=== PATIENT | male | born 1950 | race Caucasian/White ===

== ENCOUNTER → 2016-12-08 | Outpatient (CLI) | payer OTHER ==
[~2016-12-08] MED LIST: ASPI81TA28 PO; BRL90 PO; CHOL2000 PO; GLUC1CAP35 PO; HYDR-5688 PO; INSTAFLEX PO; IRBE1TAB46 PO; IRBE1TAB48 PO; LEVO100T PO; LPR25 PO; LPT40 PO; METFTAB2 PO; MIRA1TAB3 PO; MODA100T17 PO; MODA1TAB PO; MULT-845 PO; NTRSLP4 SL; OMEG1CAP81 PO; PARO1TAB29 PO; PRLSR20 PO; RANITIDINE PO; ROPI0.5T15 PO; SIMV80TA2 PO; SNC/20 PO; VITAMIN B12 PO; [UNRECOGNIZED DRUG - OTHER] PO
[2016-12-08 12:42] LABS: ALB/GLOB RATIO 1.2 (0.9-2); ALKALINE PHOSPHATASE 77 U/L (45-117); ALT/SGPT 38 U/L (12-78); AST/SGOT 22 U/L (15-37); BLOOD UREA NITROGEN 26 mg/dl (7-18); BUN/CREATININE RATIO 25.7 (10-20); CALCIUM 8.9 mg/dl (8.5-10.1); CARBON DIOXIDE 25 mmol/L (21-32); CHLORIDE 105 mmol/L (98-107); CHOLESTEROL 173 mg/dl (0-200); GLUCOSE 119 mg/dl (70-99); HDL CHOLESTEROL 57 mg/dl; SODIUM 140 mmol/L (136-145)
[2016-12-08 12:57] LABS: LDL CHOLESTEROL CALCULATED 84 mg/dl; TRIGLYCERIDES 162 mg/dl (0-150); VERY LOW DENSITY LIPOPROT CALC 32 mg/dl
[2016-12-08 13:04] LABS: ESTIMATED AVERAGE GLUCOSE 134 mg/dl; HA1C FLAG Normal (Normal)
== END | disposition home or self-care (01) ==
LOC: C.LABPVFM 10:19
PROVIDERS: ATTEND Family Medicine
DX: E78.5 Hyperlipidemia, unspecified (principal); E03.9 Hypothyroidism, unspecified; E55.9 Vitamin D deficiency, unspecified; E11.9 Type 2 diabetes mellitus without complications

== ENCOUNTER → 2016-12-12 | Outpatient (CLI) | payer OTHER ==
[~2016-12-12] MED LIST changes: -HYDR-5688 PO
[2016-12-12 13:15] LABS: RATIO 15.5 mcg/mg (0-30.0)
== END | disposition home or self-care (01) ==
LOC: C.LABPVFM 09:45
PROVIDERS: ATTEND Family Medicine
DX: E78.5 Hyperlipidemia, unspecified (principal); E03.9 Hypothyroidism, unspecified; E55.9 Vitamin D deficiency, unspecified; E11.9 Type 2 diabetes mellitus without complications

== ENCOUNTER 2017-05-01 09:35 | Inpatient (IN) | payer OTHER ==
[2017-05-01] VITALS (8 sets, daily range): BP systolic 86–139; BP diastolic 45–81; PULSE 54–67; TEMP 36.4–36.8; O2SAT 93–98; Ht 172.7 cm; Wt 92.7 kg
[~2017-05-01] VITALS: Ht 172.7 cm; Wt 92.7 kg
[~2017-05-01 09:35] MED LIST changes: -ASPI81TA28 PO; -BRL90 PO; -GLUC1CAP35 PO; -IRBE1TAB46 PO; -LPR25 PO; -LPT40 PO; -MIRA1TAB3 PO; -MODA100T17 PO; -MODA1TAB PO; -NTRSLP4 SL; -OMEG1CAP81 PO; -RANITIDINE PO; -ROPI0.5T15 PO; -SNC/20 PO; -VITAMIN B12 PO
--- NOTE | 2017-05-01 09:54 | EMERGENCY ROOM VISIT NOTE ---
History Report prepared by Best: Bozena Davis Under the Supervision of: Dr. Nba Palencia D.O. First contact with patient: 09:45 Chief Complaint: CHEST PAIN Stated Complaint: HEART PROBLEMS History of Present Illness The patient is a 66 year old male who presents to the Emergency Room with complaints of intermittent central chest pain over the last several days. The patient reports that the pain radiates down both arms. He denies any abdominal pain. 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 He denies any modifying factors. The patient states that the pain lasted 10 minutes. He denies any history of heart problems, previous PR, or previous heart catheterization. The patient states that he was at his PCP's office today regarding his discomfort and was given aspirin and instructed to come to the emergency department. He reports a history of diabetes, hypertension, and hyperlipidemia. The patient denies any tobacco or alcohol use. The patient's sister in law reports a strong family history of heart disease. Source of History: patient Onset: last several days Position: chest (central) Timing: intermittent Note: Associated Symptoms: pain radiating into bilateral arms Review of Systems See HPI for pertinent positives & negatives. A total of 10 systems reviewed and were otherwise negative. Past Medical & Surgical Medical Problems: (1) Diabetes mellitus (2) Hypertension Family History Diabetes mellitus FH: heart disease Hypertension Social History Smoking Status: Never Smoker Alcohol Use: none Drug Use: none Marital Status: Housing Status: lives with significant other Occupation Status: retired Current/Historical Medications Scheduled Aspirin (Aspirin Ec), 81 MG PO DAILY Cholecalciferol (Vitamin D3), 1 CAP PO QAM Nutnvtppjud-Gkdxyimkwhx-Yyp C- (Glucosamine Chondroitin), 1 CAP PO BID Irbesartan (Irbesartan), 150 MG PO QAM Levothyroxine Sodium (Synthroid), 100 MCG PO QAM Metformin Ext Rel (Glucophage Ext Rel), 750 MG PO BID Mirabegron (Myrbetriq Er), 50 MG PO DAILY Modafinil (Provigil), 100 MG PO DAILY Modafinil (Provigil), 200 MG PO DAILY Multiple Vitamins W/ Minerals (Centrum Silver Adult 50+), 1 TAB PO QPM [place]-3 Fatty Acids (Fish Oil), 1 CAP PO BID Paroxetine (Paxil), 40 MG PO QAM Ropinirole (Requip), 0.5 MG PO HS Simvastatin (Zocor), 80 MG PO QPM Trospium Chloride (Trospium Chloride), 20 MG PO BID [Vitamin B12], 1 TAB PO DAILY Scheduled PRN [Ranitidine], 1 TAB PO DAILY PRN for PRN Allergies Coded Allergies: No Known Allergies (Verified , 05/01/17) Physical Exam Vital Signs Date Time Temp Pulse Resp B/P (MAP) Pulse Ox O2 Delivery O2 Flow Rate FiO2 05/01/17 12:05 67 12 05/01/17 12:00 70 16 05/01/17 11:55 64 16 05/01/17 11:50 68 16 81 05/01/17 11:45 65 19 94 05/01/17 11:40 67 23 94 05/01/17 11:35 79 21 97 05/01/17 11:30 68 20 94 05/01/17 11:25 64 10 97 05/01/17 11:20 62 8 97 05/01/17 11:15 63 13 05/01/17 11:10 62 14 95 05/01/17 11:05 64 18 128/79 95 05/01/17 11:01 128/79 05/01/17 11:00 93 Room Air 05/01/17 11:00 64 12 96 05/01/17 10:55 63 13 95 05/01/17 10:50 78 18 96 05/01/17 10:45 65 13 05/01/17 10:40 63 19 93 05/01/17 10:35 63 19 95 05/01/17 10:31 127/73 05/01/17 10:30 63 20 95 05/01/17 10:25 64 20 93 05/01/17 10:20 67 25 96 05/01/17 10:15 64 22 96 05/01/17 10:10 63 15 95 05/01/17 10:05 66 24 96 05/01/17 10:01 135/77 05/01/17 10:00 64 22 95 05/01/17 09:56 127/65 05/01/17 09:55 67 24 05/01/17 09:52 64 05/01/17 09:50 96 Room Air 05/01/17 09:50 Room Air 05/01/17 09:38 36.5 68 17 138/85 96 Room Air Physical Exam GENERAL: Patient is awake, alert, and in no acute distress. Patient is resting comfortably and showing no signs of anxiety EYES: The conjunctivae are clear. The pupils are round and reactive. EARS, NOSE, MOUTH AND THROAT: The nose is without any evidence of any deformity. Mucous membranes are moist tongue is midline NECK: The neck is nontender and supple. RESPIRATORY: Normal respiratory effort is noted there is no evidence of wheezing rhonchi or rales CARDIOVASCULAR: Regular rate and rhythm noted there no murmurs rubs or gallops normal S1 normal S2 GASTROINTESTINAL: The abdomen is soft. Bowel sounds are present in all quadrants. Abdomen is nontender MUSCULOSKELETAL/EXTREMITIES: There is no evidence of gross deformity full range of motion is noted in the hips and shoulders SKIN: There is no obvious evidence of any rash. There are no petechiae, pallor or cyanosis noted. NEUROLOGIC: Patient is awake alert and oriented x3. Medical Decision & Procedures ER Provider Diagnostic Interpretation: X-ray results as stated below per interpretation by me and the radiologist. CHEST ONE VIEW PORTABLE CLINICAL HISTORY: CHEST PAIN dyspnea COMPARISON STUDY: 08/10/2015 FINDINGS: The bones soft tissues and hemidiaphragms are normal. The cardiomediastinal silhouette is normal. The lungs are clear. The pulmonary vasculature is normal. IMPRESSION: Negative chest. Electronically signed by: Edmund Mack M.D. 05/01/2017 10:01 AM Dictated Date/Time: 05/01/2017 10:00 AM Laboratory Results 05/01/17 09:50 Red Blood Count 4.93, Mean Corpuscular Volume 93.7, Mean Corpuscular Hemoglobin 30.0, Mean Corpuscular Hemoglobin Concent 32.0, Mean Platelet Volume 9.6, Neutrophils (%) (Auto) 60.0, Lymphocytes (%) (Auto) 27.6, Monocytes (%) (Auto) 9.2, Eosinophils (%) (Auto) 2.0, Basophils (%) (Auto) 0.7, Neutrophils # (Auto) 4.48, Lymphocytes # (Auto) 2.06, Monocytes # (Auto) 0.69, Eosinophils # (Auto) 0.15, Basophils # (Auto) 0.05 05/01/17 09:50 Test 05/01/17 09:50 White Blood Count 7.47 K/uL (4.8-10.8) Red Blood Count 4.93 M/uL (4.7-6.1) Hemoglobin 14.8 g/dL (14.0-18.0) Hematocrit 46.2 % (42-52) Mean Corpuscular Volume 93.7 fL (80-100) Mean Corpuscular Hemoglobin 30.0 pg (25-34) Mean Corpuscular Hemoglobin Concent 32.0 g/dl (32-36) Platelet Count 199 K/uL (130-400) Mean Platelet Volume 9.6 fL (7.4-10.4) Neutrophils (%) (Auto) 60.0 % Lymphocytes (%) (Auto) 27.6 % Monocytes (%) (Auto) 9.2 % Eosinophils (%) (Auto) 2.0 % Basophils (%) (Auto) 0.7 % Neutrophils # (Auto) 4.48 K/uL (1.4-6.5) Lymphocytes # (Auto) 2.06 K/uL (1.2-3.4) Monocytes # (Auto) 0.69 K/uL (0.11-0.59) Eosinophils # (Auto) 0.15 K/uL (0-0.5) Basophils # (Auto) 0.05 K/uL (0-0.2) RDW Standard Deviation 46.4 fL (36.4-46.3) RDW Coefficient of Variation 13.6 % (11.5-14.5) Immature Granulocyte % (Auto) 0.5 % Immature Granulocyte # (Auto) 0.04 K/uL (0.00-0.02) Prothrombin Time 10.6 SECONDS (9.0-12.0) Prothromb Time International Ratio 1.0 (0.9-1.1) Activated Partial Thromboplast Time 25.7 SECONDS (21.0-31.0) Partial Thromboplastin Ratio 1.0 Anion Gap 8.0 mmol/L (3-11) Est Creatinine Clear Calc Drug Dose 79.2 ml/min Estimated GFR () 89.9 Estimated GFR (Non- 77.5 BUN/Creatinine Ratio 27.4 (10-20) Calcium Level 9.1 mg/dl (8.5-10.1) Total Bilirubin 0.5 mg/dl (0.2-1) Direct Bilirubin < 0.1 mg/dl (0-0.2) Aspartate Amino Transf (AST/SGOT) 41 U/L (15-37) Alanine Aminotransferase (ALT/SGPT) 40 U/L (12-78) Alkaline Phosphatase 80 U/L (45-117) Total Creatine Kinase 423 U/L (39-308) Creatine Kinase MB 20.7 ng/ml (0.5-3.6) Creatine Kinase MB Ratio 4.9 (0-3.0) Troponin I 2.320 ng/ml (0-0.045) Total Protein 7.3 gm/dl (6.4-8.2) Albumin 4.0 gm/dl (3.4-5.0) Triglycerides Level 68 mg/dl (0-150) Cholesterol Level 123 mg/dl (0-200) HDL Cholesterol 55 mg/dl LDL Cholesterol, Calculated 54 mg/dl VLDL Cholesterol, Calculated 14 mg/dl Cholesterol/HDL Ratio 2.2 Lipase 104 U/L (73-393) Laboratory results per my review. Medications Administered Medications (Trade) Dose Ordered Sig/Regino Route Start Time Stop Time Status Last Admin Dose Admin Heparin Sodium/ Dextrose 1 ea NOW STAT N/A 05/01/17 10:31 05/01/17 10:32 DC 05/01/17 11:04 1 EA Heparin Sodium/ Dextrose (Heparin 25,000 Unit/500ml D5W) 25,000 unit STK-MED ONCE .ROUTE 05/01/17 10:43 05/01/17 10:44 DC 05/01/17 11:00 25,000 UNIT Heparin Sodium (Porcine) (Heparin Sq 5000 Unit/0.5ml) 10,000 unit STK-MED ONCE .ROUTE 05/01/17 10:52 05/01/17 10:53 DC 05/01/17 10:58 6 UNIT Sodium Chloride 1,000 ml @ 75 mls/hr [id number] IV 05/01/17 11:51 05/31/17 11:50 05/01/17 15:15 75 MLS/HR Nitroglycerin (Nitroglycerin 2% Oint) 1 inch Q6H EXT 05/01/17 12:00 05/31/17 11:59 05/01/17 15:16 1 INCH ECG Indication: chest pain Rate (beats per minute): 66 Rhythm: normal sinus Findings: T-wave inversion (anterior and lateral leads, worriesom for ischemia) , no ectopy, other (no acute st segment abnormalities) Comparison ECG Date: 08/10/15 Change: When compared to EKG done on 08/10/15, changes are new. Similar tracing to EKG done earlier today as an outpatient. ED Course 0946: The patient was evaluated in room B11B. A complete history and physical examination were performed. 1031: Ordered Heparin Sodium Dextrose 1 ea NA. 1037: I discussed the patients case with Dr. Nichols, Cardiology. He states that he will call the international Design/Animation Instructor to discuss taking the patient to the aquatic laborer. 1043: Ordered Heparin Sodium/Dextrose 54301 unit .route. 1052: Ordered Heparin Sodium (Porcine) 62880 unit .route. 1115: I reevaluated the patient and he is doing well. I discussed the exam findings with him and I discussed the treatment plan. He verbalized complete understanding and agreement. He is going to be evaluated for further treatment. 1120: I discussed the patients case with Dr. Zendejas, [facility] [place]. He is going to evaluate the patient for further treatment. Medical Decision Differential diagnosis: Etiologies such as cardiac ischemia, aortic dissection, pulmonary embolism, pneumonia, pneumothorax, musculoskeletal, infections, pericarditis, myocarditis , esophageal rupture, gastrointestinal, as well as others were entertained. Blood pressure screening: Patient was found to have normal blood pressure on screening and does not require follow-up. Medication Reconciliation: I attest that I have personally reviewed the patient' s current medications list. The patient is a 66-year-old male who presented to the emergency department for an evaluation of chest pain. The patient has a very strong history of early coronary artery disease and also has many risk factors for coronary artery disease. Initially was seen by his primary care physician and sent to the emergency department after he was given aspirin. The patient was found have an abnormal EKG by his primary care physician and was sent to the emergency department for further evaluation. The patient has no chest pain at this time. His EKG does show changes could be related to ischemia as well as left main or LAD disease. I discussed the patient's laboratory and radiographic studies with him. He was found have an elevated troponin. I do feel his condition is likely consistent with an acute coronary syndrome. He was started on heparin. He was reevaluated multiple times. I discussed his case with the on-call [facility] communication studies professor as well as the on-call [facility] hospitalist group. They have agreed to evaluate the patient in emergency apartment for further management and disposition. Consults Time Called: 1035 Consulting Physician: Dr. Nichols, Cardiology Returned Call: 1037 I discussed the patients case with Dr. Nichols, Cardiology. He states that he will call the international Design/Animation Instructor to discuss taking the patient to the aquatic laborer. Additional Consults: Time Called: 1041 Consulted Physician: ALDO Alves Returned Call: 1120 Additional Comments: I discussed the patients case with ALDO Alves. He is going to evaluate the patient for further treatment. Impression Primary Impression: NSTEMI (non-ST elevated myocardial infarction) Additional Impression: Abnormal EKG Critical Care I have personally spent greater than 45 minutes of critical care time in the direct management of this patient. This includes bedside care, interpretation of diagnostic studies, and testing, discussion with consultants, patient, and family members, and other required patient management activities. This 45 minutes is in excess of all separately billable procedures. Scribe Attestation The scribe's documentation has been prepared under my direction and personally reviewed by me in its entirety. I confirm that the note above accurately reflects all work, treatment, procedures, and medical decision making performed by me. Departure Information Dispostion Being Evaluated By Hospitalist Referrals Carl Peña M.D. (PCP) Problem Qualifiers
[2017-05-01 10:01] LABS: BASO % 0.7 %; BASO ABS # 0.05 K/uL (0-0.2); COMPLETE YES; HEMATOCRIT 46.2 % (42-52); IG% 0.5 %; LYMPH % 27.6 %; LYMPH ABS # 2.06 K/uL (1.2-3.4); MEAN CELL VOLUME 93.7 fL (80-100); MEAN PLATELET VOLUME 9.6 fL (7.4-10.4); MONO % 9.2 %; PLATELET COUNT 199 K/uL (130-400); RED BLOOD COUNT 4.93 M/uL (4.7-6.1); WHITE BLOOD COUNT 7.47 K/uL (4.8-10.8)
--- NOTE | 2017-05-01 10:02 | DIAGNOSTIC IMAGING REPORT ---
CHEST ONE VIEW PORTABLE CLINICAL HISTORY: CHEST PAIN dyspnea COMPARISON STUDY: 08/10/2015 FINDINGS: The bones soft tissues and hemidiaphragms are normal. The cardiomediastinal silhouette is normal. The lungs are clear. The pulmonary vasculature is normal. IMPRESSION: Negative chest. Electronically signed by: Edmund Mack M.D. 05/01/2017 10:01 AM Dictated Date/Time: 05/01/2017 10:00 AM
[2017-05-01 10:16] LABS: CALCIUM 9.1 mg/dl (8.5-10.1)
[2017-05-01 10:19] LABS: PROTHROMBIN TIME (PATIENT) 10.6 SECONDS (9.0-12.0)
[2017-05-01 10:20] LABS: ALT/SGPT 40 U/L (12-78); BLOOD UREA NITROGEN 27 mg/dl (7-18); BUN/CREATININE RATIO 27.4 (10-20); CARBON DIOXIDE 26 mmol/L (21-32); CHLORIDE 105 mmol/L (98-107); GLUCOSE 102 mg/dl (70-99); POTASSIUM 4.1 mmol/L (3.5-5.1); SODIUM 139 mmol/L (136-145)
[2017-05-01 10:31] LABS: ALKALINE PHOSPHATASE 80 U/L (45-117); AST/SGOT 41 U/L (15-37); CKMB/CK RATIO 4.9 (0-3.0)
[2017-05-01] MEDS ORDERED: ASPI81TA28 PO ×2 (10:35)
[2017-05-01] MEDS ORDERED: RANITIDINE PO ×2 (10:35)
[2017-05-01] MEDS ORDERED: OMEG1CAP81 PO ×2 (10:35)
[2017-05-01] MEDS ORDERED: GLUC1CAP35 PO ×2 (10:35)
[2017-05-01] MEDS ORDERED: VITAMIN B12 PO ×2 (10:35)
[2017-05-01] MEDS ORDERED: HEPARIN 25000 UNIT/500 ML D5W ONE (10:43)
[2017-05-01] MEDS ORDERED: SNC/20 PO ×2 (10:46)
[2017-05-01] MEDS ORDERED: ROPI0.5T15 PO ×2 (10:46)
[2017-05-01] MEDS ORDERED: MODA1TAB PO ×2 (10:46)
[2017-05-01] MEDS ORDERED: MODA100T17 PO ×2 (10:46)
[2017-05-01] MEDS ORDERED: MIRA1TAB3 PO ×2 (10:46)
[2017-05-01] MEDS ORDERED: HEPARIN SOD 5000 UNIT/0.5 ML CARP ONE (10:52)
[2017-05-01] MEDS ORDERED: DEXTROSE 50% 50 ML SYR IV PRN (12:00)
[2017-05-01] MEDS ORDERED: NITROGLYCERIN 0.4 MG SL PER TAB CHARGE SL PRN (12:00)
[2017-05-01] MEDS ORDERED: ZOLPIDEM TARTRATE 5 MG TAB PO PRN (12:00)
[2017-05-01] MEDS ORDERED: MoRPHine SULFATE 2 MG/ML CARP IV PRN (12:00)
[2017-05-01] MEDS ORDERED: ALUMINUM/MAGNESIUM/SIMETH (MAALOX MAX) 30 ML UDC PO PRN (12:00)
[2017-05-01] MEDS ORDERED: MAGNESIUM HYDROXIDE SUSP 30 ML UDC PO PRN (12:00)
[2017-05-01] MEDS ORDERED: POLYETHYLENE (MIRALAX) 17 GM PACK PO PRN (12:00)
[2017-05-01] MEDS ORDERED: ACETAMINOPHEN 325 MG TAB PO PRN ×2 (12:00→18:45)
[2017-05-01] MEDS ORDERED: GLUCOSE 40% GEL 15 GM TUBE PO PRN (12:00)
[2017-05-01] MEDS ORDERED: GLUCAGON FOR INJ 1 MG VIAL SQ PRN (12:00)
[2017-05-01] MEDS ORDERED: GLUCOSE 10 TABS/TUBE PO PRN (12:00)
[2017-05-01] MEDS ORDERED: PHARMACY GLYCEMIC MGMT CONSULT PRN (12:08)
--- NOTE | 2017-05-01 12:21 | Pharmacy Progress Note ---
Glycemic Control Intl Consult Date of Service May 01, 2017. Scope Glycemic Pharmacist consulted on 05/01/17 for glycemic control and to write orders per [facility] inpatient glycemic control protocol Objective Weight (Kilograms): 92.700 Accuchecks BSG (last 24hrs): Test 05/01/17 09:50 Random Glucose 102 mg/dl (70-99) Laboratory Data (last 24hrs) Test 05/01/17 09:50 Anion Gap 8.0 mmol/L BUN/Creatinine Ratio 27.4 Blood Urea Nitrogen 27 mg/dl Creatinine 1.00 mg/dl Potassium Level 4.1 mmol/L Sodium Level 139 mmol/L White Blood Count 7.47 K/uL Red Blood Count 4.93 M/uL Hemoglobin 14.8 g/dL Hematocrit 46.2 % Mean Corpuscular Volume 93.7 fL Mean Corpuscular Hemoglobin 30.0 pg Mean Corpuscular Hemoglobin Concent 32.0 g/dl Platelet Count 199 K/uL Mean Platelet Volume 9.6 fL Neutrophils (%) (Auto) 60.0 % Lymphocytes (%) (Auto) 27.6 % Monocytes (%) (Auto) 9.2 % Eosinophils (%) (Auto) 2.0 % Basophils (%) (Auto) 0.7 % Neutrophils # (Auto) 4.48 K/uL Lymphocytes # (Auto) 2.06 K/uL Monocytes # (Auto) 0.69 K/uL Eosinophils # (Auto) 0.15 K/uL Basophils # (Auto) 0.05 K/uL Recent Pertinent Medications Outpatient Anti-diabetic Regimen: * Metformin ER 750 mg BIDM Risk Factors for Insulin Resistance: * Diet: NPO Assessment & Plan ASSESSMENT: * 66 yo M admitted with chest pain * Pt appears to be a T2DM on Metformin only at home * Plan will be to initiate patient on wt-based Novolog and follow-up tomorrow if diet advanced * Most recent A1c from 11/2016 (not within 90 days); reorder with AM labs * ADA & AACE recommend a goal blood sugar range 140-180 mg/dl for the majority of critically ill & non-critically ill patients. However, more stringent targets may be selected in individual cases. PLAN FOR INPATIENT GLYCEMIC CONTROL: * Hold outpatient metformin * Correctional Insulin with NOVOLOG per scale Q6hrs while NPO * Goal Range: Low 140 mg/dL - High 180 mg/dL * Correction Factor: 25 mg/dL/unit * Nutritional / Prandial insulin per carb ratio of 1 unit per 0 grams CHO consumed * Please note that the plan above was derived based on current level of insulin resistance and hospital stress. These recommendations are appropriate for inpatient admission only. Plan of care upon discharge will need to be reassessed to avoid potential outpatient hypo/hyperglycemia. Thank you.
[2017-05-01 12:26] LABS: CHOLESTEROL/HDL RATIO 2.2
--- NOTE | 2017-05-01 12:27 | CARDIOLOGY CONSULTATION REPORT ---
DATE OF CONSULTATION: 05/01/2017 DATE OF CONSULTATION: 05/01/2017. REASON FOR CONSULTATION: 1. Unstable Angina. 2. Elevated troponin I. 3. Multiple cardiac risk factors. HISTORY OF PRESENT ILLNESS: Mr. Berman is a very pleasant 66-year-old white male with a history of Type 2 Diabetes Mellitus x 10 years, Hypertension, Dyslipidemia, and a very strong family history of premature coronary artery disease who presented acutely to his PCPs office today complaining of intermittent chest pain. His pain was initially noted on 04/28/2017 when he was sitting quietly. He describes the discomfort as a pressure in his central / left chest. His initial episode lasted about 1 hour, and the pain resolved gradually. Since that time he has had several more mild episodes of this chest pressure which do not necessarily radiate to his arms, and can last for 5-15 minutes. He denies any associated nausea, vomiting, diaphoresis, or dyspnea. His subsequent episodes can occur with exertion or at rest. Thus far he is noted to have an elevated Troponin I level of 2.320 ng/mL, with an elevated total CK and borderline CK-MB level. Additionally his EKG shows normal sinus rhythm with biphasic T-waves / T-wave abnormality in leads V1 through V4. These changes are new compared to 10/01/2014 tracing. The patient offers no other complaints or concerns. He denies any prior cardiac history or prior cardiac events. He has never had a stress test. He has never had a cardiac catheterization. His last meal was last evening, and he took his last dose of metformin last evening at approximately 10 p.m. The patient denies any history of kidney disease and he denies any drug allergies or contrast allergies. MEDICATIONS ( AN OUTPATIENT): 1. Aspirin 81 mg daily (recently started). 2. Vitamin D3 2000 International Units daily. 3. Glucosamine chondroitin sulfate 1 capsule b.i.d. 4. Irbesartan 150 mg daily. 5. Levothyroxine 100 mcg daily. 6. Metformin 750 mg b.i.d. 7. Provigil 100 mg each day. 8. Provigil 200 mg daily. 9. Multivitamin with minerals. 10. Jack 3 fatty acids 1 capsule b.i.d. 11. Paxil 40 mg daily. 12. Requip 0.5 mg p.o. at bedtime. 13. Zocor 80 mg q.p.m. 14. Trospium chloride 20 mg b.i.d. 15. Ranitidine 1 tablet daily as needed. 16. Vitamin B12 one tablet daily. ALLERGIES: No known drug allergies. PAST MEDICAL HISTORY: 1. Type 2 Diabetes Mellitus x approximately 10 years. 2. Long-standing Hypertensin. 3. Long-standing Dyslipidemia. 4. GERD. 5. BPH. 6. Mixed sleep apnea. 7. History of depression. 8. Hypothyroidism. 9. Osteoarthritis. 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 11. History of vitamin D deficiency. 12. The patient specifically denies any history of documented CAD, TN, CHF, or rheumatic fever. No history of cardiac dysrhythmias. SOCIAL HISTORY: The patient is and accompanied by his and [id number]. He is a life-long nonsmoker. He does not drink alcohol. Works on a cattle farm. Does not us any illicit or [id number] drugs. FAMILY HISTORY: Significant for premature CAD in 3 brothers, all of whom are now. Youngest brother started having cardiac issues in his 50s. PHYSICAL EXAMINATION: VITAL SIGNS: Temperature 36.5 C, blood pressure is 127/73, pulse 65 and regular, respiratory rate is 12 and unlabored, SPO2 is 93% on room air. GENERAL: The patient is in no acute distress. HEAD, EYES, EARS, NOSE, AND THROAT: Head is atraumatic, normocephalic. EOM intact. Sclera anicteric. Faces symmetric. No perioral cyanosis. Mucous membranes moist. NECK: Without thyromegaly, adenopathy or JVD. Carotid upstrokes +2 bilaterally without bruits. CHEST AND LUNGS: Are clear to auscultation throughout lung arteaga. No wheezes, rales or rhonchi. CARDIOVASCULAR SYSTEM: S1 and S2 are regular without murmur, gallop, or rub. PMI is nondisplaced. No lifts, heaves, or thrills. No abdominal, aortic or renal bruits. ABDOMINAL EXAMINATION: Bowel sounds are present. No masses, organomegaly, or tenderness. No abdominal, aortic, renal or femoral bruits. Femoral, arterial upstrokes are +2 bilaterally. EXTREMITIES: No clubbing, cyanosis, or edema. Intact radial and posterior tibial pulses bilaterally. Dilan's test borderline negative on the right for ulnar reflow. NEUROLOGIC EXAMINATION: Patient is awake, alert and oriented, pleasant and cooperative. Answers questions appropriately. Speech is clear. Normal movement in all 4 extremities. Current telemetry monitoring reveals normal sinus rhythm to sinus bradycardia. LABORATORY DATA: White blood cell count of 7.47, hemoglobin 14.8 g/dL, hematocrit 46.2%, platelet count 199,000. INR is 1.0. PTT ratio is 1.0. Sodium is 139 mmol/L, potassium 4.1 mmol/L, BUN 27 mg/dL, creatinine 1.00 mg/dL. Random glucose 102 mg/dL. Total CKs is 423 with CK-MB of 20.7 ng/mL (representing 4.9% of total CK). Troponin I level elevated at 2.320 ng/mL. Chest x-ray shows no acute processes. EKG on admission shows normal sinus rhythm at the rate of 66 beats per minute with biphasic T-waves in leads V1 through V4 with T-wave flattening in V5. These are new compared to 2014 tracing. ASSESSMENT: 1. New onset Chest Pressure with radiation to bilateral medial arms -- Consistent with Unstable Angina / Crescendo Angina. 2. Elevated troponin I level. 3. Abnormal EKG. 4. Type 2 Diabetes Mellitus. 5. Hypertension. 6. Dyslipidemia. 7. Strong family history of premature CAD. PLAN: 1. I have discussed this patient with Dr. Sunshine. 2. We will attempt to take patient to the Cardiac Catheterization laboratory within the next several hours. He is to remain NPO until that time except for medications. 3. The patient is currently symptom free. 4. Continue high dose statin therapy. Will recommend switching to Lipitor 80 mg daily - as this event appears to have occurred while on high dose Zocor. 5. Continue Irbesartan 150 mg daily. 6. Hold metformin for now and cover blood sugars with sliding scale insulin. 7. Begin low dose beta seble -- Lopressor 25 mg bid. 8. Continue Aspirin daily intermission coordinator. 9. He has already received Heparin subcutaneously. Consider starting heparin drip depending on when cardiac catheterization is starting. 10. Continue trending cardiac enzymes. 11. Daily EKGs. 12. We will make further recommendations pending the outcome of his cardiac catheterization. 13. I had a long discussing with the patient today regarding how cardiac catheterization is, what information is gathered by cardiac catheterization -- along with the risks, benefits, and potential outcomes of cardiac catheterization. He agrees to proceed. I have discussed this case with Dr. Sunshine who will also meet with the patient. HERBIE
[2017-05-01] MEDS: HEPARIN SOD 5000 UNIT/0.5 ML CARP SQ SCH ×2 (14:00→23:14)
[2017-05-01] MEDS ORDERED: METOPROLOL TARTRATE 25 MG TAB PO STA (14:10)
[2017-05-01] MEDS: SODIUM CHLORIDE 0.9% 1000ML 1,000 ML IV SCH (15:15)
[2017-05-01] MEDS: NITROGLYCERIN 2% OINTMENT 30GM TUBE EXT SCH ×2 (15:16→18:00)
[2017-05-01] MEDS ORDERED: HEPARIN SOD (PORCINE) 1000 UNIT/ML 10 ML VIAL ONE (15:26)
[2017-05-01] MEDS ORDERED: NiCARDipine HCL INJ 2.5 MG/ML 10 ML AMP ONE (15:26)
[2017-05-01] MEDS ORDERED: NITROGLYCERIN/D5W 100MCG/ML 20ML SYR ONE (15:27)
[2017-05-01] MEDS ORDERED: MIDAZOLAM HCL 1 MG/ML 2ML VIAL ONE (15:27)
[2017-05-01] MEDS ORDERED: FENTANYL CITRATE INJ 50 MCG/1 ML 2 ML VIAL ONE (15:27)
--- NOTE | 2017-05-01 15:42 | HISTORY & PHYSICAL EXAMINATION ---
DATE OF ADMISSION: 05/01/2017 CHIEF COMPLAINT: Chest pain. HISTORY OF PRESENT ILLNESS: The patient is a 66-year-old white man with past medical history of diabetes mellitus type 2, currently on metformin also has hypertension and dyslipidemia. The patient does have 3 brothers that most likely from heart attack, they were found in most of the situation and other 2 brothers that have a significant cardiac history 1 of them had CABG. 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 The pain resolved by sitting down and resting. Later on that day, he had a milder episode of chest pain that he also ignored. The next day, he also had another 1 or 2 episodes that he ignored because they would not as severe. The patient called his primary doctor yesterday and went to see her today. She sent him to the ED for further evaluation and management. On arrival to the ED, he was chest pain free, but his troponin was 2.3 and he had some nonspecific EKG changes, so patient will be admitted for further evaluation and management. Pain was severe on the first time upon presentation recurrent episodes were much milder. The patient's pain radiated to his arms. He describes the pain as chest heaviness. PAST MEDICAL HISTORY: As HPI. PAST SURGICAL HISTORY: As HPI. ALLERGIES: No known drug allergies. HOME MEDICATIONS: 1. Aspirin 81 mg daily. 2. Vitamin D supplement. 3. Irbesartan 150 mg daily. 4. Levothyroxine 100 mcg daily. 5. Metformin 750 mg b.i.d. 6. stimulant drug 100 mg each day and 200 mg as well. I am not sure how he takes these, whether he alternates or takes them the same day. 7. Multivitamin. 8. [place]-3 fatty acid. 9. Paxil 40 mg daily. 10. Requip 0.5 mg daily. 11. Zocor 80 mg p.o. daily. 12. Trospium chloride 20 mg b.i.d. 13. Ranitidine 1 tablet daily as needed. 14. Vitamin B12 supplement. ALLERGIES: No known allergies. SOCIAL HISTORY: Does not smoke, does not drink alcohol. Lives in a farm. FAMILY HISTORY: Significant for premature CAD in 3 brothers as mentioned above. PHYSICAL EXAMINATION: VITAL SIGNS: Pulse ox 96% on room air, respiratory rate is 14, heart rate is 62, blood pressure 127/73. GENERAL: Not in acute distress, appears to be comfortable, mildly obese. HEAD, EYES, EARS, NOSE, AND THROAT: No jaundice, no pallor. Wet mucous membrane. NECK: Supple. HEART: S1, S2 normal. No gallop, rub or murmur. LUNGS: Clear to auscultation bilaterally. Normal chest wall expansion. ABDOMEN: Soft, nontender, nondistended. NEUROLOGIC: Awake, alert, oriented to time, place, and person. Moves all extremities. Sensation intact. Cranial nerves II-XII, appears to be intact. SKIN: No rash or erythema. PSYCHIATRIC: Normal affect and thought process. IMAGING: Chest x-ray is within normal limits. EKG showed some nonspecific ST-T wave changes. LABORATORY DATA: White blood cell count 7.4, hemoglobin 14.8 and platelet count is 199, creatinine is 1, BUN is 27. Sodium is 139. CK-MB is 20.7 and troponin is 2.3. ASSESSMENT: 1. Chest pain/uym-KH-[id number] elevation myocardial infarction. 2. Diabetes mellitus type 2. 3. Hypertension. 4. Dyslipidemia. 5. Strong family history of premature coronary artery disease. 6. Obstructive sleep apnea. 7. Gastroesophageal reflux disease. 8. Depression. 9. Hypothyroidism. PLAN: 1. Admit patient to ICU. 2. Cardiology consult appreciated. 3. The patient will go to cardiac catheterization. 4. Switch simvastatin to Lipitor. 5. Obtain lipid panel and hemoglobin A1c to stratify his risk. 6. Hold metformin and start him on sliding scale insulin. 7. Serial cardiac enzymes. 8. At some point will need 2D echo, will leave it up to human resources leader. 9. Continue aspirin and small dose beta seble that was started by human resources leader. 10. Continue heparin drip started by the ED physician. 11. Continue irbesartan 150 mg daily. 12. Keep patient on IV fluid hydration due to contrast exposure. MTDD
--- NOTE | 2017-05-01 16:34 | Procedure Note ---
Pre-Mod Sedation Assessment General Date of Moderate Sedation: May 01, 2017. Vital Signs: Vital Signs Past 12 Hours Date Time Temp Pulse Resp B/P (MAP) Pulse Ox O2 Delivery O2 Flow Rate FiO2 05/01/17 14:00 36.6 60 18 139/81 (100) 95 Room Air 05/01/17 12:25 63 7 96 05/01/17 12:20 62 14 95 05/01/17 12:18 120/74 05/01/17 12:15 62 21 05/01/17 12:10 62 9 05/01/17 12:05 67 12 05/01/17 12:00 70 16 05/01/17 11:55 64 16 05/01/17 11:50 68 16 81 05/01/17 11:45 65 19 94 05/01/17 11:40 67 23 94 05/01/17 11:35 79 21 97 05/01/17 11:30 68 20 94 05/01/17 11:25 64 10 97 05/01/17 11:20 62 8 97 05/01/17 11:15 63 13 05/01/17 11:10 62 14 95 05/01/17 11:05 64 18 128/79 95 05/01/17 11:01 128/79 05/01/17 11:00 93 Room Air 05/01/17 11:00 64 12 96 05/01/17 10:55 63 13 95 05/01/17 10:50 78 18 96 05/01/17 10:45 65 13 05/01/17 10:40 63 19 93 05/01/17 10:35 63 19 95 05/01/17 10:31 127/73 05/01/17 10:30 63 20 95 05/01/17 10:25 64 20 93 05/01/17 10:20 67 25 96 05/01/17 10:15 64 22 96 05/01/17 10:10 63 15 95 05/01/17 10:05 66 24 96 05/01/17 10:01 135/77 05/01/17 10:00 64 22 95 05/01/17 09:56 127/65 05/01/17 09:55 67 24 05/01/17 09:52 64 05/01/17 09:50 96 Room Air 05/01/17 09:50 Room Air 05/01/17 09:38 36.5 68 17 138/85 96 Room Air Review Cardiovascular: regular rate, rhythm, no edema Abdomen: normal bowel sounds, non tender Lungs: chest non-tender, lungs clear Pre-Sedation Airway Assessment Oral Cavity: WNL Able to Visualize Vocal Cords: No Short Thick Neck: No Hx of Sleep Apnea: No Smoking Status: Never Smoker Mallampati Classification: Class II ASA Classification: Class III Procedure Planning Contraindications-for Mod Sed: None Yes Notes The planned sedation has been discussed with the patient and consent obtained. I have identified the patient, determined the appropriateness of sedation and have assessed the patient immediately prior to the procedure. All medicine(s) and interventions are by my order.
[2017-05-01] MEDS ORDERED: TICAGRELOR 90 MG TAB PO ONE (16:58)
[2017-05-01] MEDS ORDERED: EPTIFIBATIDE 2 MG/ML 10 ML VIAL IV ONE (17:20)
[2017-05-01] MEDS ORDERED: ONDANSETRON INJ 2 MG/ML 2 ML VIAL ONE (17:23)
[2017-05-01] MEDS ORDERED: ATROPINE SULFATE 0.1 MG/ML 10 ML SYR ONE (17:57)
[2017-05-01] MEDS ORDERED: INSULIN ASPART 100 UNITS/ML 3 ML PEN SC SCH (18:00)
--- NOTE | 2017-05-01 18:15 | Procedure Note ---
Post-Mod Sedation Assessment General Date of Moderate Sedation May 01, 2017. Vital Signs: Vital Signs Past 12 Hours Date Time Temp Pulse Resp B/P (MAP) Pulse Ox O2 Delivery O2 Flow Rate FiO2 05/01/17 18:11 53 18 90/53 (65) 94 Room Air 05/01/17 18:00 54 18 82/53 (63) 94 Room Air 05/01/17 17:55 44 19 64/30 (41) 94 Room Air 05/01/17 17:50 42 19 64/30 (41) 95 Room Air 05/01/17 17:45 56 19 95/51 (66) 99 Mask 3 05/01/17 14:00 36.6 60 18 139/81 (100) 95 Room Air 05/01/17 12:25 63 7 96 05/01/17 12:20 62 14 95 05/01/17 12:18 120/74 05/01/17 12:15 62 21 05/01/17 12:10 62 9 05/01/17 12:05 67 12 05/01/17 12:00 70 16 05/01/17 11:55 64 16 05/01/17 11:50 68 16 81 05/01/17 11:45 65 19 94 05/01/17 11:40 67 23 94 05/01/17 11:35 79 21 97 05/01/17 11:30 68 20 94 05/01/17 11:25 64 10 97 05/01/17 11:20 62 8 97 05/01/17 11:15 63 13 05/01/17 11:10 62 14 95 05/01/17 11:05 64 18 128/79 95 05/01/17 11:01 128/79 05/01/17 11:00 93 Room Air 05/01/17 11:00 64 12 96 05/01/17 10:55 63 13 95 05/01/17 10:50 78 18 96 05/01/17 10:45 65 13 05/01/17 10:40 63 19 93 05/01/17 10:35 63 19 95 05/01/17 10:31 127/73 05/01/17 10:30 63 20 95 05/01/17 10:25 64 20 93 05/01/17 10:20 67 25 96 05/01/17 10:15 64 22 96 05/01/17 10:10 63 15 95 05/01/17 10:05 66 24 96 05/01/17 10:01 135/77 05/01/17 10:00 64 22 95 05/01/17 09:56 127/65 05/01/17 09:55 67 24 05/01/17 09:52 64 05/01/17 09:50 96 Room Air 05/01/17 09:50 Room Air 05/01/17 09:38 36.5 68 17 138/85 96 Room Air Review - Discharge Criteria Vital Signs Stable: Yes Alert/Oriented/Conversant: Yes Returned to Baseline Mental St: Yes Active Bleeding?: No Pt Received D/C Instructions: N/A Prescriptions Given: None Specific Proced. D/C Criteria Distal Pulses Present (Cardiac: Yes Groin site assessed-Card Cath: N/A Voided Prior To Discharge: N/A Discharged Patients Adult Escort/Transportation: Yes
--- NOTE | 2017-05-01 18:33 | Cardiac Catheterization ---
Procedure Note Procedure Date May 01, 2017. Pre-Procedure Diagnosis Non STEMI AUC Score 8 Post-Procedure Diagnosis Severe CAD, Successful PCI, Normal Intracardiac Pressures Procedure(s) Performed Coronary Angiography, Left Heart Cath, Drug Eluting Stent Icu Specialist Jong Economic Analyst(s) [place]unt Estimated Blood Loss 15 Medication(s) Atropine, Fentanyl, Heparin, Integrilin, Nicardipine, Nitroglycerin, Versed, Lidocaine 1% Ticagrelor, Zofran Summary of Findings Indication: NSTEMI Access: 6Fr Right Radial Artery Catheters: [place], JL3.5; EBU 3.5 guide Findings: LM - Angiographically normal LAD - Large caliber vessel, 20% ostial stenosis; 95% proximal stenosis at take- off of small-moderate caliber 1s diagonal; Distal LAD and large 2nd diagonal angiographically normal. Circumflex - Large caliber vessel, luminal irregularities. RCA - Dominant, moderate caliber vessel, luminal irregularities; 20% distal segment stenosis; PDA luminal irregularities. LVEDP - 14 -- PCI -- Antithrombotic therapy: Heparin, Ticagrelor, IC Integrilin bolus x2 Procedure: LM cannulated with EBU 3.5 guide Prowater wire passed across lesion into distal vessel 2nd prowater placed into 1st diagonal LAD lesion predilated with 3.0 compliant balloon Dilated lesion stented with 4.0 x 18 Xience GUERLINE Post stenting there was no/slow reflow in LAD. Treated with IC vasodilators and IC integrilin. 2nd prowater pulled back and re-wired into diagonal through stent struts Stent post-dilated with 4.5 noncompliant balloon IC vasodilators administered for spasm Post procedure PAVEL 3 flow, stent well expanded with minimal residual stenosis and no apparent cardiac complications. After vasodilators/sedation, some persistent hypotension post procedure which responded to IV fluids. No significant change with 0.5 atropine. Loaded with Ticagrelor intraprocedure (1 episode of emesis later in procedure, no visible pills) Arterial Closure: TR Band Summary: 1. Single vessel coronary artery disease - 95% proximal LAD 2. Normal intracardiac filling pressure 3. Successful PCI of proximal LAD with 4.0 x 18 Xience GUERLINE (post-dilated with 4.5 NC balloon) Recommendations: To PCU for continued monitoring Loaded with Ticagrelor intraprocedure Likely switch to clopidogrel tomorrow Continue dual-antiplatelet therapy for 1 year Continue statin, beta-seble/ARB, and ASCVD risk factor modification Consult cardiac Rehab` Hemodynamics Rest Ao: 75/54/64 Final Ao: 74/48/60 LV: 84/14 Recommendations PCI without planned CABG Specimens None Radiation Exposure (mGy) 3288 Contrast (mls) 180 Visi Fluids (cc crystalloids) 520 NSS Drains None Anesthesia Moderate (16:36 - 17:45) Procedural Complication(s) None Disposition PCU ACC Data Cardiac Status Clinical evaluation leading to the procedure CAD Presntation: Non STEMI Anginal Classification: CCS IV Heart Failure: No, NYHA Class: CCS I Cardiogenic Shock w/in 24Hrs: No Cardiac Arrest w/in 24Hrs: No Imaging studies past 6 months: Yes Stress studies past 6 months: No Standard Exercise Stress Test: No Stress Echocardiogram: No Stress Testing w/SPECT MPI: No Cardiac CTA: No Coronary Anatomy Dominant: Right Left Main (% Stenosis): Normal LAD (% Stenosis): Proximal (95) Circumflex (% Stenosis): Normal RCA (% Stenosis): Normal Diagnostic Physician's Name: Wade Sunshine MD Closure Device Percutaneous Entry Location: Radial Closure Device: Radial Band Recommendations: PCI without planned CABG PCI Indication: PCI for high risk Non-STEMI Lesion Segment Name: Proximal LAD Culprit Artery: Yes Stenosis Prior to Rx (%): 95 Chronic Total Occlusion: No FFR: No Pre-Procedure PAVEL Flow: 3 Previously Treated Lesion: No Lesion Complexity: Non-High/Non-C Lesion Length (mm): 15 Thrombus Present: Yes Bifurcation Lesion: Yes Guidewire Across Lesion: Yes Guidewire: Stenosis Post-Procedure (%): 0 Post-Procedure PAVEL Flow: 3 Device(s) Deployed: Yes Intraprocedure Events Significant Dissection: No Perforation: No
[2017-05-01] MEDS ORDERED: ONDANSETRON INJ 2 MG/ML 2 ML VIAL IV PRN (18:45)
[2017-05-01] MEDS ORDERED: SODIUM CHLORIDE 0.9% 1000ML 1,000 ML IV SCH (19:30)
[2017-05-01] MEDS ORDERED: NURSING DECISION MEDICATION ORDER SCH (19:45)
[2017-05-01] MEDS: INSULIN ASPART 100 UNITS/ML 3 ML PEN SC SCH (20:19)
[2017-05-01] MEDS ORDERED: ROPINIROLE HCL 1 MG TAB PO SCH (21:00)
[2017-05-01] MEDS: METOPROLOL TARTRATE 25 MG TAB PO SCH (21:30)
[2017-05-02] VITALS (8 sets, daily range): BP systolic 98–119; BP diastolic 54–65; PULSE 52–58; TEMP 36.4–36.7; O2SAT 92–98
[2017-05-02] MEDS: NITROGLYCERIN 2% OINTMENT 30GM TUBE EXT SCH ×4 (00:30→12:00)
[2017-05-02] MEDS ORDERED: LEVOTHYROXINE 100 MCG TAB PO SCH (06:00)
[2017-05-02] MEDS: HEPARIN SOD 5000 UNIT/0.5 ML CARP SQ SCH ×2 (06:09→14:33)
[2017-05-02] MEDS: SODIUM CHLORIDE 0.9% 1000ML 1,000 ML IV SCH (06:12)
[2017-05-02 06:27] LABS: BASO % 0.4 %; BASO ABS # 0.03 K/uL (0-0.2); COMPLETE YES; EOS % 1.1 %; HEMATOCRIT 39.6 % (42-52); IG% 0.2 %; LYMPH ABS # 2.21 K/uL (1.2-3.4); MEAN CORPUSCULAR HEMOGLOBIN 31.2 pg (25-34); MEAN CORPUSCULAR HGB CONC 32.8 g/dl (32-36); MEAN PLATELET VOLUME 9.6 fL (7.4-10.4); MONO % 8.3 %; PLATELET COUNT 173 K/uL (130-400); RED BLOOD COUNT 4.17 M/uL (4.7-6.1)
[2017-05-02 06:45] LABS: ESTIMATED AVERAGE GLUCOSE 126 mg/dl; HA1C FLAG Normal (Normal)
[2017-05-02 07:23] LABS: ALB/GLOB RATIO 1.1 (0.9-2); ALKALINE PHOSPHATASE 70 U/L (45-117); ALT/SGPT 30 U/L (12-78); AST/SGOT 38 U/L (15-37); BLOOD UREA NITROGEN 25 mg/dl (7-18); BUN/CREATININE RATIO 23.1 (10-20); CARBON DIOXIDE 26 mmol/L (21-32); CHLORIDE 109 mmol/L (98-107); GLUCOSE 90 mg/dl (70-99); MAGNESIUM 2.2 mg/dl (1.8-2.4); PHOSPHORUS 3.7 mg/dl (2.5-4.9); POTASSIUM 3.9 mmol/L (3.5-5.1); SODIUM 143 mmol/L (136-145)
[2017-05-02 07:26] LABS: CALCIUM 8.1 mg/dl (8.5-10.1)
[2017-05-02] MEDS: INSULIN ASPART 100 UNITS/ML 3 ML PEN SC SCH ×2 (07:46→11:37)
[2017-05-02] MEDS: METOPROLOL TARTRATE 25 MG TAB PO SCH (08:12)
[2017-05-02] MEDS ORDERED: TICAGRELOR 90 MG TAB PO SCH (09:00)
[2017-05-02] MEDS ORDERED: IRBESARTAN 75 MG TAB PO SCH (09:00)
[2017-05-02] MEDS ORDERED: IRBESARTAN 150 MG TAB PO SCH ×2 (09:00)
[2017-05-02] MEDS ORDERED: PAROXETINE 20 MG TAB PO SCH (09:00)
[2017-05-02] MEDS ORDERED: ATORVASTATIN 40 MG TAB PO SCH (09:00)
[2017-05-02] MEDS ORDERED: ASPIRIN 81 MG ECTAB PO SCH (09:00)
[2017-05-02] MEDS ORDERED: ASPIRIN 325 MG ECTAB PO SCH ×2 (09:00)
--- NOTE | 2017-05-02 14:54 | Cardiology Follow-Up ---
Subjective Subjective Date of Service: May 02, 2017. Pt evaluation today including: conversation w/ patient, physical exam, chart review, lab review, review of studies, review of inpatient medication list Additional Details: Feeling well. No chest pain. No palpitations. No other new complaints. Tele reviewed --- episodes of short AIVR this AM. No further episodes this afternoon. Problem List Medical Problems: (1) Abnormal EKG Status: Acute (2) Closed fracture of tuft of distal phalanx of finger Status: Acute (3) Crush injury to finger Status: Acute (4) Laceration of nail bed of finger Status: Acute (5) NSTEMI (non-ST elevated myocardial infarction) Status: Acute (6) Open finger fracture Status: Acute Review of Systems Constitutional: No fever ENT: No hearing loss Respiratory: No cough Cardiac: No chest pain, No edema Abdomen: No pain Neurologic: No memory loss Heme: No abnormal bleeding/bruising Skin: No rash Objective Vital Signs Last Vital Signs Documentation Date Time Temp Pulse Resp B/P (MAP) Pulse Ox O2 Delivery O2 Flow Rate FiO2 05/02/17 11:49 36.7 52 19 119/65 (83) 97 Room Air 05/01/17 17:45 3 Physical Exam: General Appearance: no apparent distress Neck: no JVD Respiratory/Chest: lungs clear, normal breath sounds Cardiovascular: regular rate, rhythm, no edema, no JVD Abdomen: normal bowel sounds, non tender Extremities: no pedal edema, no calf tenderness, + pertinent finding (right radial artery access site with good distal pulse, intact sensation. No ecchymosis/hematoma) Neurologic/Psychiatric: no motor/sensory deficits, alert, normal mood/affect Skin: warm/dry, no rash Assessment and Plan 1. NSTEMI 2. Severe CAD s/p PCI with GUERLINE to proximal LAD 3. AIVR 4. DM2 5. HTN/HLD No recurrent chest pain. Hemodynamically stable. No further episodes of AIVR - well beta-blocked currently. From a cardiac standpoint OK for discharge later today Continue DAPT with ASA/Brillanta for at least 1 year\ On ARB/BBlocker/statin Follow-up with me in 2 weeks. Medications: Current Inpatient Medications Medications (Trade) Dose Ordered Sig/Regino Route Start Time Stop Time Status Last Admin Dose Admin Metoprolol Tartrate (Lopressor Tab) 25 mg BID PO 05/01/17 21:00 05/31/17 20:59 05/02/17 08:12 25 MG Atorvastatin Calcium (Lipitor Tab) 80 mg QAM PO 05/02/17 09:00 06/01/17 08:59 05/02/17 08:11 80 MG Aspirin (Ecotrin Tab) 325 mg QAM PO 05/02/17 09:00 06/01/17 08:59 05/02/17 08:12 325 MG Levothyroxine Sodium (Synthroid Tab) 100 mcg DAILYBB PO 05/02/17 06:00 06/01/17 05:59 05/02/17 06:07 100 MCG Paroxetine HCl (pAXil TAB) 40 mg QAM PO 05/02/17 09:00 06/01/17 08:59 05/02/17 08:13 40 MG Ropinirole HCl (Requip Tab) 0.5 mg HS PO 05/01/17 21:00 05/31/17 20:59 05/01/17 23:01 0.5 MG Miscellaneous Information (Order Awaiting Action) 1 ea QS N/A 05/01/17 16:00 05/31/17 15:59 Heparin Sodium (Porcine) (Heparin Sq 5000 Unit/0.5ml) 5,000 unit Q8 SQ 05/01/17 14:00 05/31/17 13:59 05/02/17 14:33 5,000 UNIT Sodium Chloride 1,000 ml @ 75 mls/hr [id number] IV 05/01/17 11:51 05/31/17 11:50 05/02/17 06:12 75 MLS/HR Acetaminophen (Tylenol Tab) 650 mg Q4H PRN PO 05/01/17 12:00 05/31/17 11:59 05/01/17 23:01 650 MG Al Hydrox/Mg Hydrox/Simethicone (Maalox Max Susp) 15 ml Q4H PRN PO 05/01/17 12:00 05/31/17 11:59 Magnesium Hydroxide (Milk Of Magnesia Susp) 30 ml Q12H PRN PO 05/01/17 12:00 05/31/17 11:59 Zolpidem Tartrate (Ambien Tab) 5 mg HSZ PRN PO 05/01/17 12:00 05/31/17 11:59 05/01/17 23:01 5 MG Nitroglycerin (Nitrostat Tab) 0.4 mg UD PRN SL 05/01/17 12:00 05/31/17 11:59 Nitroglycerin (Nitroglycerin 2% Oint) 1 inch Q6H EXT 05/01/17 12:00 05/31/17 11:59 05/02/17 06:09 1 INCH Morphine Sulfate (MoRPHine SULFATE INJ) 2 mg Q30M PRN IV 05/01/17 12:00 05/15/17 11:59 Polyethylene (Miralax Powder Packet) 17 gm DAILY PRN PO 05/01/17 12:00 05/31/17 11:59 Glucose (Glucose 40% Gel) 15-30 GRAMS 15 GRAMS... UD PRN PO 05/01/17 12:00 05/31/17 11:59 Glucose (Glucose Chew Tab) 4-8 Tablets 4 Tabl... UD PRN PO 05/01/17 12:00 05/31/17 11:59 Dextrose (Dextrose 50% 50ML Syringe) 25-50ML OF 50% DW IV FOR... UD PRN IV 05/01/17 12:00 05/31/17 11:59 Glucagon (Glucagon Inj) 1 mg UD PRN SQ 05/01/17 12:00 05/31/17 11:59 Miscellaneous Information (Consult Glycemic Management Pharmacy) 1 ea UD PRN N/A 05/01/17 12:08 05/31/17 12:07 Ondansetron HCl (Zofran Inj) 4 mg Q6H PRN IV 05/01/17 18:45 05/31/17 18:44 Ticagrelor (Brilinta Cap) 90 mg BID PO 05/02/17 09:00 06/01/17 08:59 05/02/17 08:13 90 MG Insulin Aspart (novoLOG ASPART) SLIDING SCALE G... ACHS SC 05/01/17 21:00 05/31/17 20:59 Irbesartan (Avapro Tab) 75 mg QAM PO 05/02/17 09:00 06/01/17 08:59 05/02/17 08:52 75 MG Lab Results: 05/02/17 06:00 Red Blood Count 4.17, Mean Corpuscular Volume 95.0, Mean Corpuscular Hemoglobin 31.2, Mean Corpuscular Hemoglobin Concent 32.8, Mean Platelet Volume 9.6, Neutrophils (%) (Auto) 63.0, Lymphocytes (%) (Auto) 27.0, Monocytes (%) (Auto) 8.3, Eosinophils (%) (Auto) 1.1, Basophils (%) (Auto) 0.4, Neutrophils # (Auto) 5.17, Lymphocytes # (Auto) 2.21, Monocytes # (Auto) 0.68, Eosinophils # (Auto) 0.09, Basophils # (Auto) 0.03 05/02/17 06:00 Test 05/01/17 17:19 05/02/17 06:00 05/02/17 11:07 05/02/17 11:51 Kaolin Activated Coagulation Time 219 SECONDS (94-140) White Blood Count 8.20 K/uL (4.8-10.8) Red Blood Count 4.17 M/uL (4.7-6.1) Hemoglobin 13.0 g/dL (14.0-18.0) Hematocrit 39.6 % (42-52) Mean Corpuscular Volume 95.0 fL (80-100) Mean Corpuscular Hemoglobin 31.2 pg (25-34) Mean Corpuscular Hemoglobin Concent 32.8 g/dl (32-36) Platelet Count 173 K/uL (130-400) Mean Platelet Volume 9.6 fL (7.4-10.4) Neutrophils (%) (Auto) 63.0 % Lymphocytes (%) (Auto) 27.0 % Monocytes (%) (Auto) 8.3 % Eosinophils (%) (Auto) 1.1 % Basophils (%) (Auto) 0.4 % Neutrophils # (Auto) 5.17 K/uL (1.4-6.5) Lymphocytes # (Auto) 2.21 K/uL (1.2-3.4) Monocytes # (Auto) 0.68 K/uL (0.11-0.59) Eosinophils # (Auto) 0.09 K/uL (0-0.5) Basophils # (Auto) 0.03 K/uL (0-0.2) RDW Standard Deviation 47.5 fL (36.4-46.3) RDW Coefficient of Variation 13.9 % (11.5-14.5) Immature Granulocyte % (Auto) 0.2 % Immature Granulocyte # (Auto) 0.02 K/uL (0.00-0.02) Anion Gap 8.0 mmol/L (3-11) Est Creatinine Clear Calc Drug Dose 72.0 ml/min Estimated GFR () 80.1 Estimated GFR (Non- 69.1 BUN/Creatinine Ratio 23.1 (10-20) Estimated Average Glucose 126 mg/dl Hemoglobin A1c 6.0 % (4.5-5.6) Calcium Level 8.1 mg/dl (8.5-10.1) Phosphorus Level 3.7 mg/dl (2.5-4.9) Magnesium Level 2.2 mg/dl (1.8-2.4) Total Bilirubin 0.2 mg/dl (0.2-1) Aspartate Amino Transf (AST/SGOT) 38 U/L (15-37) Alanine Aminotransferase (ALT/SGPT) 30 U/L (12-78) Alkaline Phosphatase 70 U/L (45-117) Total Protein 5.8 gm/dl (6.4-8.2) Albumin 3.1 gm/dl (3.4-5.0) Globulin 2.7 gm/dl (2.5-4.0) Albumin/Globulin Ratio 1.1 (0.9-2) Bedside Glucose 76 mg/dl (70-99) Creatine Kinase MB Ratio (0-3.0) Test 05/02/17 12:03 Creatine Kinase MB 38.1 ng/ml (0.5-3.6) Troponin I 5.670 ng/ml (0-0.045)
--- NOTE | 2017-05-02 15:15 | Discharge Instructions ---
Discharge Instructions Date of Service May 02, 2017. Admission Reason for Admission: Nstemi Discharge Discharge Diagnosis / Problem: Non-ST Elevation ND (Heart Attack) with Stent Placement Discharge Goals Goal(s): Decrease discomfort, Improve function, Increase independence Activity Recommendations Activity Limitations: as noted below NO STRENUOUS ACTIVITY UNTIL FOLLOW-UP WITH CARDIOLOGY. LIGHT WALKING IS OK. AVOID HEAVY FARMING ACTIVITY, SEXUAL ACTIVITY, OR EXERCISE! ACTIVITY RECOMMENDATIONS: Excess manipulation of the right wrist should be avoided for the next 24-48 hours. * No lifting over 2 pounds (approximately a 1/2 gallon of milk) with the right arm for 24 hours. * Keep the site of the procedure covered with a bandage for 24 hours. *You may shower the day after the procedure. Do not take a tub bath or submerge the puncture site in water for the next 3 days. *Do not operate any motorized equipment for 3 days. SPECIAL CARE INSTRUCTIONS: The site may be slightly bruised and sore following your procedure. Should any of the following occur, contact the Dr. who performed your procedure. 1. Redness/inflammation, swelling, chills, or fever, or colored drainage at procedure site within 3-7 days after your procedure. 2. Coldness, discoloration, ongoing numbness, severe pain, or swelling. Expect mild tingling of hand and tenderness at the puncture site for up to three days. If this persists beyond three days, or other symptoms develop, notify the Dr. who performed your procedure. BLEEDING: If the procedure site on your wrist begins to bleed, do not panic 1. Place 1 or 2 fingers firmly just slightly above the insertion site to stop the bleeding. You may be able to feel your pulse as you hold pressure. 2. Lift your finger after 5 minutes to see if the bleeding has stopped. 3. Once the bleeding has stopped, gently wipe the wrist area clean with a bandage. * If the bleeding from your wrist does not stop after 10 minutes, or if there is a large amount of bleeding or spurting, call 911 (do not drive yourself to the hospital). SKIN IRRITATION: * You may experience some redness and/or swelling in the area where radiation was administered. If any skin irritation occurs, please contact your family physician. FOLLOW UP VISIT: Keep any scheduled doctor appointments. . Instructions / Follow-Up Instructions / Follow-Up Medication Changes: - Some of your medications have changed. Please follow these recommendations. If you have any questions please discuss with your family doctor or wrapper selector -- STOP SIMVASTATIN and start Atorvastatin 80 mg daily - this medication help cholesterol but is more beneficial than Simvastatin in cardiac prevention -- Your Irbesartan was reduced as we added a new medication and do not want to give you low blood pressure. Please take this lower dose and a prescription will be sent to your pharmacy -- Brilinta/Ticagrelor was added and you this with aspirin for the next year -- AVOID taking things like Ibuprofen, Motrin, Aleve with this medication and aspirin as this can increase GI upset and bleeding risk -- For pain, would recommend Tylenol but use as prescribed on the bottle -- Metoprolol was added as this helps with blood pressure, heart rate, and reduces the need for the heart to work harder then it needs to -- Be aware that this medication can slow your heart rate down and can cause dizziness. Please discuss with your family doctor if you get these symptoms -- Nitroglycerin will be given. This medication should be taken when you get chest pain. You place this under the tongue. If the pain does not go away you can take another dose. You can do this for a total of three times but if the pain is not going away CALL 911 Home Care: * Take your medications exactly as directed. Don't skip doses. * Remember that recovery after a heart attack takes time. Plan to rest for at lease 4-8 weeks while you recover. Then return to normal activity when your doctor says it's okay. * Ask your doctor about joining a heart rehabilitation program. * Tell your doctor if you are feeling depressed. Feelings of sadness are common after a heart attack, but it is important that you speak to someone if you are feeling overwhelmed by these feelings. * If you are having chest pain, call 911 for an ambulance[address] Do NOT drive yourself to the hospital. * Ask your family members to learn CPR. * Learn to take your own blood pressure and pulse. Keep a record of your results. Ask your doctor when you should seek emergency medical attention. He or she will tell you which blood pressure reading is dangerous. Lifestyle Changes: * Maintain a healthy weight. Get help to lose any extra pounds. * Cut back on salt. * Limit canned, dried, packaged, and fast foods. * Don't add salt to your food. * Season foods with herbs instead of salt when you cook. * Break the smoking habit. Enroll in a stop-smoking program to improve your chances of success. * Limit fatty foods. * Check your lipid levels regularly. (Your doctor can show you how to do this.) * Build up your activity according to your doctor's recommendation. * Ask your doctor when it's okay to resume sexual activity. * Tell your doctor about any erectile dysfunction (ED) medication you are taking. Some ED medications are not safe if you take certain heart medications. * Try to manage stress. Follow Up: It is important for you to keep your follow up appointments with your medical provider. Current Hospital Diet Patient's current hospital diet: AHA Diet (Heart Healthy), Diabetes Type 2 Diet Discharge Diet Recommended Diet: AHA Diet (Heart Healthy), Diabetes Type 2 Diet Pending Studies Studies pending at discharge: no Laboratory Results Hemoglobin A1c Test 05/02/17 06:00 Range/Units Estimated Average Glucose 126 mg/dl Hemoglobin A1c 6.0 H 4.5-5.6 % Lipid Panel Test 05/01/17 09:50 Range/Units Triglycerides Level 68 0-150 mg/dl Cholesterol Level 123 0-200 mg/dl HDL Cholesterol 55 mg/dl Cholesterol/HDL Ratio 2.2 LDL Cholesterol, Calculated 54 mg/dl Medical Emergencies . Who to Call and When: Medical Emergencies: If at any time you feel your situation is an emergency, please call 911 immediately. Call 911 immediately or go to your nearest Emergency Room if you experience any of the following: Warning Signs and Symptoms of a Heart Attack * Chest pain that is not relieved by medication * Shortness of breath . Non-Emergent Contact Non-Emergency issues call your: Primary Care Provider Call Non-Emergent contact if: you have a fever, your pain is concerning you, you have any medication questions . . "Provider Documentation" section prepared by Kelli Root. Attending Attestation: Pt seen/examined and discharge care plan d/w FOZIA Root on day of discharge. I agree w/ her discharge instructions as outlined. Costa Wilson MD . AMI Core Measures Reason no ASA as I/P: Treatment provided - N/A Reason no ASA at D/C: Treatment provided - N/A Reason no statin as I/P: Treatment provided - N/A Reason no statin at D/C: Treatment provided - N/A VTE Core Measure Inpt VTE Proph given/why not?: Unfractionated heparin SQ
[2017-05-02] MEDS ORDERED: LPR25 PO ×2 (15:25)
[2017-05-02] MEDS ORDERED: LPT40 PO ×2 (15:25)
[2017-05-02] MEDS ORDERED: NTRSLP4 SL ×2 (15:25)
[2017-05-02] MEDS ORDERED: IRBE1TAB46 PO ×2 (15:25)
[2017-05-02] MEDS ORDERED: BRL90 PO ×2 (15:25)
--- NOTE | 2017-05-02 17:05 | Discharge Summary ---
Discharge Summary Date of Service May 02, 2017. (Kelli Root PA-C) Discharge Summary Admission Date: May 01, 2017 at 12:05 Discharge Date: May 02, 2017 Discharge Disposition: Home Principal Diagnosis: NSTEMI S/P LAD GUERLINE Problems/Secondary Diagnoses: 1. HTN 2. T2DM 3. HLD Procedures: 1. CHEST ONE VIEW PORTABLE FINDINGS: The bones soft tissues and hemidiaphragms are normal. The cardiomediastinal silhouette is normal. The lungs are clear. The pulmonary vasculature is normal. IMPRESSION: Negative chest. 2. CARDIAC CATHETERIZATION Summary: 1. Single vessel coronary artery disease - 95% proximal LAD 2. Normal intracardiac filling pressure 3. Successful PCI of proximal LAD with 4.0 x 18 Xience GUERLINE (post-dilated with 4.5 NC balloon) Consultations: 1. Cardiology (Kelli Root PA-C) Problems/Secondary Diagnoses: hypothyroidism (Costa Wilson MD) Medication Reconciliation New Medications: Atorvastatin (Atorvastatin Calcium) 40 Mg Tab 80 MG PO QAM for 30 Days, #60 TAB Irbesartan (Irbesartan) 75 Mg Tab 75 MG PO QAM for 30 Days, #30 TAB Metoprolol Tartrate (Lopressor) 25 Mg Tab 25 MG PO BID for 30 Days, #60 TAB Nitroglycerin (Nitrostat) 0.4 Mg/1 Tab Subl 0.4 MG SL UD PRN for Chest Pain for 30 Days, #1 BTL One tab under tongue for chest pain. Repeat every 5 mins x 3 times until chest pain gone. Ticagrelor (Brilinta) 90 Mg Tab 90 MG PO BID for 30 Days, #60 TAB 0 Refills Continued Medications: Aspirin (Aspirin Ec) 81 Mg Tab 81 MG PO DAILY Cholecalciferol (Vitamin D3) 2,000 Unit Cap 1 CAP PO QAM for 90 Days, #90 CAP 3 Refills Feoyswpfobv-Ivummmpzayn-Hjb C- (Glucosamine Chondroitin) 1 Cap Cap 1 CAP PO BID Levothyroxine Sodium (Synthroid) 100 Mcg Tab 100 MCG PO QAM, TAB Metformin Ext Rel (Glucophage Ext Rel) 750 Mg Tab 750 MG PO BID, TAB Mirabegron (Myrbetriq Er) 50 Mg Tab 50 MG PO DAILY, TAB Modafinil (Provigil) 100 Mg Tab 100 MG PO DAILY, TAB Modafinil (Provigil) 200 Mg Tab 200 MG PO DAILY, TAB Multiple Vitamins W/ Minerals (Centrum Silver Adult 50+) 1 Tab Tab 1 TAB PO QPM Platinum-3 Fatty Acids (Fish Oil) 1 Cap Cap 1 CAP PO BID Paroxetine (Paxil) 40 Mg Tab 40 MG PO QAM, 0 Refills Ropinirole (Requip) 0.5 Mg Tab 0.5 MG PO HS, TAB Trospium Chloride (Trospium Chloride) 20 Mg Tab 20 MG PO BID [Ranitidine] () 1 TAB PO DAILY PRN for PRN [Vitamin B12] () 1 TAB PO DAILY Discontinued Medications: Irbesartan (Irbesartan) 150 Mg Tab 150 MG PO QAM Simvastatin (Zocor) 80 Mg Tab 80 MG PO QPM, TAB Discharge Exam Review of Systems: Constitutional: No fever, No chills Eyes: No worsening of vision ENT: No nasal symptoms, No sore throat, No trouble swallowing Respiratory: No cough, No dyspnea on exertion, No dyspnea at rest Cardiovascular: No chest pain, No orthopnea, No palpitations Abdomen: No pain, No nausea, No vomiting, No diarrhea, No constipation, No GI bleeding Musculoskeletal: No swelling, No calf pain Genitourinary - Male: No dysuria Neurologic: No numbness/tingling Hematologic / Lymphatic: No abnormal bleeding/bruising Integumentary: No rash Physical Exam: General Appearance: WD/WN, no apparent distress Eyes: sclerae normal ENT: hearing grossly normal, pharynx normal Neck: supple, no JVD, trachea midline Respiratory/Chest: lungs clear, normal breath sounds, no respiratory distress, no accessory muscle use Cardiovascular: regular rate, rhythm, no gallop, no murmur Abdomen / GI: normal bowel sounds, non tender, soft Extremities: no calf tenderness, no pedal edema, + pertinent finding (RUE with immediate cap refill; radial pulse 2+; no erythema, drainage, tenderness at cath site) Neurologic/Psychiatric: alert, oriented x 3 Skin: normal color, warm/dry (Kelli Root, TAMMYC) Hospital Course ADMISSION: The patient is a 66-year-old white man with past medical history of diabetes mellitus type 2, currently on metformin also has hypertension and dyslipidemia. The patient does have 3 brothers that most likely from heart attack, they were found in most of the situation and other 2 brothers that have a significant cardiac history 1 of them had CABG. 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 The pain resolved by sitting down and resting. Later on that day, he had a milder episode of chest pain that he also ignored. The next day, he also had another 1 or 2 episodes that he ignored because they would not as severe. The patient called his primary doctor yesterday and went to see her today. She sent him to the ED for further evaluation and management. On arrival to the ED, he was chest pain free, but his troponin was 2.3 and he had some nonspecific EKG changes, so patient will be admitted for further evaluation and management. Pain was severe on the first time upon presentation recurrent episodes were much milder. The patient' s pain radiated to his arms. He describes the pain as chest heaviness. HOSPITAL COURSE: Mr. Berman was admitted for NSTEMI and is S/P GUERLINE x 1 in LAD on 05/01. He was initiated on Metoprolol tartrate 25 mg BID and therefore Irbesartan was reduced to 75 mg daily to prevent hypotension. Plan for ASA 81 mg daily and Brilinta 90 mg BID x 1 year for GUERLINE. Simvastatin was D/C'd and started on Atorvastatin 80 mg daily. Educated on nitroglycerin use and prescription provided for PRN needs. Patient noted to have short run of accelerated idioventricular rhythm x 1 episode. No further episodes but beta seble has been initiated. Patient is chest pain free and hemodynamically stable. He is optimal for D/C home with PCP and cardiology follow-up. Total Time Spent: Greater than 30 minutes This includes examination of the patient, discharge planning, medication reconciliation, and communication with other providers. (Kelli Root, SONA) Attending Discharge Note & Attestation: Pt seen/examined, chart reviewed, and care plan d/w FOZIA Root. I agree w/ the saleh components of her discharge summary. 66yo male with h/o HTN, hyperlipidemia, and T2DM who presented with several days of crescendoing chest pain. Upon ER presentation he had evidence of NSTEMI. 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 He had GUERLINE placed to the LAD. Post-cath he had an episode of idioventricular rhythm but otherwise remained hemodynamically stable with no further chest or sob. Fortunately he had preserved EF on echocardiogram. Prior to discharge he was begun on high-dose statin (lipitor), metoprolol, and brilinta along with aspirin. ARB will be continued. Acute NE instructions were given at discharge. He was advised to avoid heavy exertional activity until cleared by cardiology. Discharge exam: gen - nad neck - no JVD heart - RRR, s1, s2 lungs - CTA b/l abd - soft, NT ext - right radial artery without swelling, erythema, or bleeding no ankle edema pulses both feet 2+ b/l Costa Wilson MD (Costa Wilson MD) Discharge Instructions Please refer to the electronic Patient Visit Report (Discharge Instructions) for additional information. (Kelli Root, PA-C) Additional Copies To Carl Peña M.D.; Wade Sunshine MD
== END 2017-05-02 16:57 | disposition home or self-care (01) | DRG 247 ==
LOC: C.EDB 09:39 → C.2E 12:05 → ENRESERV 13:03
PROVIDERS: ADMIT Internal Medicine; ATTEND Internal Medicine
PROC: 4A023N7 Measurement of Cardiac Sampling and Pressure, Left Heart, Percutaneous Approach (ICD-10-PCS; principal; 2017-05-01 16:06)
PROC: B2100ZZ Fluoroscopy of Single Coronary Artery using High Osmolar Contrast (ICD-10-PCS; principal; 2017-05-01 16:06)
PROC: 027034Z Dilation of Coronary Artery, One Artery with Drug-eluting Intraluminal Device, Percutaneous Approach (ICD-10-PCS; principal; 2017-05-01 16:06)
DX: I21.4 Non-ST elevation (NSTEMI) myocardial infarction (principal); E11.9 Type 2 diabetes mellitus without complications; I10 Essential (primary) hypertension; E87.5 Hyperkalemia; Z82.49 Family history of ischemic heart disease and other diseases of the circulatory system; K21.9 Gastro-esophageal reflux disease without esophagitis; E03.9 Hypothyroidism, unspecified; F32.9 Major depressive disorder, single episode, unspecified; Z83.3 Family history of diabetes mellitus; Z79.82 Long term (current) use of aspirin; Z79.84 Long term (current) use of oral hypoglycemic drugs; I25.10 Atherosclerotic heart disease of native coronary artery without angina pectoris; E78.5 Hyperlipidemia, unspecified

== ENCOUNTER → 2017-05-01 | Outpatient (CLI) | payer OTHER ==
[2017-05-01 14:07] LABS: CHOLESTEROL/HDL RATIO 2.4; THYROID STIMULATING HORMONE 1.55 uIu/ml (0.300-4.500)
[2017-05-01 14:09] LABS: ESTIMATED AVERAGE GLUCOSE 126 mg/dl; HA1C FLAG Normal (Normal)
== END | disposition home or self-care (01) ==
LOC: C.LABPVFM 08:00
PROVIDERS: ATTEND Family Medicine
DX: E78.5 Hyperlipidemia, unspecified (principal); E11.9 Type 2 diabetes mellitus without complications; E03.9 Hypothyroidism, unspecified

== ENCOUNTER → 2017-08-23 | Outpatient (CLI) | payer OTHER ==
[~2017-08-23] MED LIST changes: +ASPI81TA28 PO; +BRL90 PO; +GLUC1CAP35 PO; -INSTAFLEX PO; +IRBE1TAB46 PO; -IRBE1TAB48 PO; +LPR25 PO; +LPT40 PO; +MIRA1TAB3 PO; +MODA100T17 PO; +MODA1TAB PO; +NTRSLP4 SL; +OMEG1CAP81 PO; -PRLSR20 PO; +RANITIDINE PO; +ROPI0.5T15 PO; -SIMV80TA2 PO; +SNC/20 PO; +VITAMIN B12 PO; -[UNRECOGNIZED DRUG - OTHER] PO
[2017-08-23 12:32] LABS: BASO % 0.9 %; BASO ABS # 0.07 K/uL (0-0.2); COMPLETE YES; EOS % 2.8 %; IG% 0.7 %; LYMPH % 22.6 %; LYMPH ABS # 1.72 K/uL (1.2-3.4); MEAN CELL VOLUME 92.1 fL (80-100); MEAN CORPUSCULAR HEMOGLOBIN 31.7 pg (25-34); MEAN CORPUSCULAR HGB CONC 34.4 g/dl (32-36); MEAN PLATELET VOLUME 9.7 fL (7.4-10.4); MONO % 10.8 %; NEUT % 62.2 %; PLATELET COUNT 205 K/uL (130-400); RED BLOOD COUNT 4.67 M/uL (4.7-6.1); WHITE BLOOD COUNT 7.62 K/uL (4.8-10.8)
[2017-08-23 12:47] LABS: CHOLESTEROL/HDL RATIO 2.5
[2017-08-23 13:01] LABS: RATIO 3.3 mcg/mg (0-30.0)
== END | disposition home or self-care (01) ==
LOC: C.LAB1850 10:35
PROVIDERS: ATTEND Physician Assistant Medical
DX: E11.9 Type 2 diabetes mellitus without complications (principal); I25.10 Atherosclerotic heart disease of native coronary artery without angina pectoris

== ENCOUNTER → 2017-09-05 | Outpatient (CLI) | payer OTHER ==
[2017-09-06 06:12] LABS: ESTIMATED AVERAGE GLUCOSE 128 mg/dl; HA1C FLAG Normal (Normal)
== END | disposition home or self-care (01) ==
LOC: C.LABPVFM 12:31
PROVIDERS: ATTEND Podiatrist
DX: M10.071 Idiopathic gout, right ankle and foot (principal); F32.9 Major depressive disorder, single episode, unspecified; I10 Essential (primary) hypertension; G47.31 Primary central sleep apnea; E78.5 Hyperlipidemia, unspecified; E11.9 Type 2 diabetes mellitus without complications; I25.10 Atherosclerotic heart disease of native coronary artery without angina pectoris

== ENCOUNTER → 2017-10-26 | Outpatient (CLI) | payer OTHER ==
[2017-10-26 13:16] LABS: CHOLESTEROL/HDL RATIO 2.1
== END | disposition home or self-care (01) ==
LOC: C.LABPVFM 10:14
PROVIDERS: ATTEND Physician Assistant Medical
DX: I10 Essential (primary) hypertension (principal); E78.5 Hyperlipidemia, unspecified; I25.10 Atherosclerotic heart disease of native coronary artery without angina pectoris; N40.0 Benign prostatic hyperplasia without lower urinary tract symptoms; Z12.5 Encounter for screening for malignant neoplasm of prostate

== ENCOUNTER → 2017-12-25 | Outpatient (CLI) | payer OTHER ==
[~2017-12-25] MED LIST changes: +AMOX500C3 PO; +ATOR-24 PO; +CYAN100020 PO; +ESCI1TAB10 PO; +METO25TA3 PO; +MULTCHW PO; +RANI300T2 PO; +TAMS0.4C38 PO; +TICA1TAB PO
--- NOTE | 2017-12-25 16:24 | DIAGNOSTIC IMAGING REPORT ---
ABDOMEN AND PELVIS CT WITHOUT CONTRAST CT DOSE: 799.34 mGycm HISTORY: Acute generalized abdominal pain R10.9 Abdominal painZ87.442 History of [id number] TECHNIQUE: Multiaxial CT images of the abdomen and pelvis were performed without contrast. A dose lowering technique was utilized adhering to the principles of ALARA. COMPARISON STUDY: CT abdomen and pelvis 01/26/2016. FINDINGS: Mild emphysematous changes of the imaged lung bases with mild subsegmental bibasilar atelectasis. There is no pneumatosis or pneumoperitoneum identified. The imaged inferior cardiac chambers are within the upper limits of normal in size. Evaluation of the solid abdominal organs is limited without the use of contrast. There is a circumscribed low attenuating 6 mm lesion noted within segment II of the liver which is too small to characterize however appears unchanged in this clear favors a benign etiology such as a hepatic cyst. No intrahepatic biliary ductal dilation. Gallbladder, spleen, pancreas and adrenal glands are unremarkable. Punctate nonobstructing calculus of the inferior pole left kidney. Punctate nonobstructing calculus is also noted within the interpolar right kidney. Mild nonspecific bilateral perinephric stranding. No ureteral calculi or obstructive uropathy. Urinary bladder demonstrates mild circumferential wall thickening with partial distention. Prostate is enlarged with central coarse parenchymal calcifications. Surgical clips projecting over the scrotum suggest prior vasectomy. Small sliding-type hiatal hernia. There is no bowel obstruction identified. Partial distention is seen within the sigmoid colon. Moderate sigmoid colonic diverticulosis without diverticulitis. Moderate atherosclerosis of the aorta without aneurysm. No pathologic adenopathy. Soft tissues are unremarkable. Generated pack overlies the left gluteal tissues with intact-appearing stimulator lead entering the sacrum and terminating adjacent to the right piriformis musculature. Multilevel discogenic degenerative changes and facet arthrosis. IMPRESSION: 1. No acute intra-abdominal or intrapelvic abnormality identified. 2. Bilateral nonobstructing nephrolithiasis without ureteral calculi or obstructive uropathy. 3. Prostamegaly with mild wall thickening of the bladder suggesting sequela of chronic bladder outlet obstruction. Correlate with urinalysis. 4. Colonic diverticulosis without CT evidence of acute diverticulitis. 5. Emphysema. 6. Additional findings as above. Electronically signed by: Kg Adame M.D. 12/25/2017 4:23 PM Dictated Date/Time: 12/25/2017 4:13 PM
== END | disposition home or self-care (01) ==
LOC: C.CTS 15:36
PROVIDERS: ATTEND Family Medicine
DX: R10.9 Unspecified abdominal pain (principal); Z87.442 Personal history of urinary calculi; N20.0 Calculus of kidney; N40.0 Benign prostatic hyperplasia without lower urinary tract symptoms; K57.30 Diverticulosis of large intestine without perforation or abscess without bleeding; J43.9 Emphysema, unspecified

== ENCOUNTER 2017-12-30 16:19 | Emergency (ER) | payer OTHER ==
[~2017-12-30] VITALS: Ht 172.7 cm; Wt 87.5 kg
[~2017-12-30 16:19] MED LIST changes: -AMOX500C3 PO; -ATOR-24 PO; -CYAN100020 PO; -ESCI1TAB10 PO; -METO25TA3 PO; -MULTCHW PO; -RANI300T2 PO; -TAMS0.4C38 PO; -TICA1TAB PO
[2017-12-30 16:20] VITALS: TEMP 36.8; Ht 172.7 cm; Wt 87.5 kg
[2017-12-30] MEDS ORDERED: LIDO/EPINEPHRINE/SOD BICARB 20 ML VIAL INFIL ONE (16:40)
[2017-12-30] MEDS ORDERED: ESCI1TAB10 PO (16:57)
[2017-12-30] MEDS ORDERED: CYAN100020 PO (16:57)
[2017-12-30] MEDS ORDERED: IRBE1TAB46 PO (16:57)
[2017-12-30] MEDS ORDERED: AMOX500C3 PO (16:57)
[2017-12-30] MEDS ORDERED: TAMS0.4C38 PO (16:57)
[2017-12-30] MEDS ORDERED: MULTCHW PO (16:57)
[2017-12-30] MEDS ORDERED: RANI300T2 PO (16:57)
[2017-12-30] MEDS ORDERED: METO25TA3 PO (16:57)
[2017-12-30] MEDS ORDERED: TICA1TAB PO (16:57)
[2017-12-30] MEDS ORDERED: ATOR-24 PO (16:59)
[2017-12-30] MEDS ORDERED: LIDOCAINE/EPINEPHRINE 1% 20 ML VIAL INFIL ONE (17:15)
[2017-12-30] MEDS ORDERED: DIPHTHERIA/TETANUS/PERTUSSIS 0.5 ML SYR/VIAL IM. ONE (17:15)
--- NOTE | 2017-12-30 17:19 | EMERGENCY ROOM VISIT NOTE ---
ED Visit Note First contact with patient: 16:25 CHIEF COMPLAINT: Left wrist laceration HISTORY OF PRESENT ILLNESS: This is a 67-year-old male patient presents to the emergency department by private vehicle after cutting the left wrist. The patient states that he was cutting a box with a utility knife, slipped and caught his left lateral wrist with a knife. The bleeding has been profuse and has not stopped. Denies weakness or numbness of the hand distal to the injury. The patient rates the pain as throbbing and to/10. The patient denies any other injuries. The patient's Tetanus shot is up to date. He is right-hand dominant. He is on aspirin and Brilinta. REVIEW OF SYSTEMS: A 6 system review of systems was completed with positives and pertinent negatives listed in the HPI. ALLERGIES: No known allergies MEDICATIONS: Reviewed in chart PMH: Reviewed in chart SOCIAL HISTORY: Lives at home. Denies tobacco, alcohol, recreational drug use. PHYSICAL EXAM: Vital Signs: Reviewed Nurse's notes, vital signs stable. GENERAL : Pleasant and cooperative, in no acute distress, well-developed, well- nourished. SKIN: There is a 4 cm long laceration on the dorsal lateral aspect of the left wrist. The edges gape apart with traction. There is no foreign material in the wound and it looks clean. There is brisk active bleeding, but no pulsatile bleeding. No deep structures such as tendons, bones, or significant blood vessels are seen in the base of the wound. Normal strength and movement of the hand and fingers. Capillary refill less than 2 seconds. Normal sensation to light and sharp touch. EMERGENCY DEPARTMENT COURSE: I examined the patient. Verbal consent was obtained to perform the procedure. Using sterile technique the wound was cleansed with Betadine. The area was sterilely draped. 4 ml of 1% buffered lidocaine with epinephrine was used to anesthetize the laceration on the left wrist. Once the patient was anesthetized, the wound was copiously irrigated under pressure with sterile saline. The wound was explored and was as described above. The laceration was repaired using 7 simple interrupted 5-0 nylon sutures with the wound edges being well approximated. The patient tolerated the procedure well. Hemostasis was achieved. The area was cleaned with sterile saline and dressed with bacitracin ointment and bandage. The patient was educated regarding wound care, follow-up, and return precautions, he verbalized understanding. The patient was discharged home in good condition. Problem List Medical Problems: (1) Diabetes mellitus Status: Chronic (2) Hypertension Status: Chronic Current/Historical Medications Scheduled Amoxicillin (Amoxil), 2,000 MG PO UD Aspirin (Aspirin Ec), 81 MG PO DAILY Atorvastatin (Lipitor), 40 MG PO DAILY Cholecalciferol (Vitamin D3), 1 CAP PO QAM Cyanocobalamin (Vitamin B12), 1 TAB PO DAILY Escitalopram Oxalate (Lexapro), 20 MG PO DAILY Irbesartan (Irbesartan), 75 MG PO DAILYBL Levothyroxine Sodium (Synthroid), 100 MCG PO QAM Metformin Ext Rel (Glucophage Ext Rel), 750 MG PO BID Metoprolol Succ (Toprol Xl) (Toprol-Xl), 25 MG PO DAILY Modafinil (Provigil), 300 MG PO DAILY Multiple Vitamins W/ Minerals (Centrum Silver), 1 TAB PO DAILY Tamsulosin Hcl (Flomax), 0.4 MG PO HS Ticagrelor (Brilinta), 90 MG PO BID Trospium Chloride (Trospium Chloride), 20 MG PO BID Scheduled PRN Nitroglycerin (Nitrostat), 0.4 MG SL UD PRN for Chest Pain Ranitidine Hcl (Zantac), 300 MG PO HS PRN for ACID REFLEX Allergies Coded Allergies: No Known Allergies (Verified , 05/01/17) Vital Signs Date Time Temp Pulse Resp B/P (MAP) Pulse Ox O2 Delivery O2 Flow Rate FiO2 12/30/17 17:27 63 18 127/77 95 Room Air 12/30/17 16:20 36.8 68 20 132/78 93 Room Air Medications Administered Medications (Trade) Dose Ordered Sig/Regino Route Start Time Stop Time Status Last Admin Dose Admin Diphtheria/ Pertussis/Tetanus Vacc (Adacel Inj) 0.5 ml ONCE ONCE IM. 12/30/17 17:15 12/30/17 17:16 DC 12/30/17 17:28 0.5 ML Departure Information Impression Primary Impression: Laceration of left wrist without complication Dispostion Home / Self-Care Condition GOOD Referrals Carl Peña M.D. (PCP) Patient Instructions ED Laceration Hand, [facility] Additional Instructions Follow-up with your PCP, in urgent care, or ER for suture removal in 8-10 days. You received an updated your tetanus shot today. Keep the bandage in place for the rest of today. You may change the bandage and wash the wound tomorrow. Keep wound clean and dry. Do not allow any crusting or dried blood to accumulate on sutures. If this occurs, use a 1:1 solution of hydrogen peroxide/ water on a Q-tip to clean the wound. Do not submerge the wound under water until the sutures have been removed. Use an antibiotic ointment for 3-4 days, then let wound dry. Keep covered with a Band-Aid. Ice and elevate for swelling and pain. Ibuprofen 600 mg and Tylenol 1000 mg every 6-8 hours as needed for pain. As with all lacerations, there may be temporary or permanent nerve damage or scarring. Keep covered when in sun until sutures removed then SPF 50 or higher for one year. Vitamin E oil if desired two weeks after suture removal for reduction of scar. Please seek immediate medical attention for any signs of infection (increasing redness, pain, swelling, pus drainage, streaking up the arm, fever/chills). Problem Qualifiers Primary Impression: Laceration of left wrist without complication Encounter type: initial encounter Qualified Codes: S61.512A - Laceration without foreign body of left wrist, initial encounter
[2017-12-30 17:27] VITALS: BP 127/77; PULSE 63; O2SAT 95
--- NOTE | 2018-01-01 22:39 | EMERGENCY ROOM VISIT NOTE ---
ED Visit Note First contact with patient: 16:25 I reviewed the patient's past medical history, medications, and visit nursing notes. I discussed the case with the physician assistant clinical director, examined the patient, and agree with the findings and plan as documented in the physician assistants note.
== END 2017-12-30 17:50 | disposition home or self-care (01) ==
LOC: C.EDB 16:20 → C.EDD 17:50
DX: S61.512A Laceration without foreign body of left wrist, initial encounter (principal); W26.0XXA Contact with knife, initial encounter; E11.9 Type 2 diabetes mellitus without complications; I10 Essential (primary) hypertension; Z79.82 Long term (current) use of aspirin; Z79.01 Long term (current) use of anticoagulants; Z79.84 Long term (current) use of oral hypoglycemic drugs; Z23 Encounter for immunization

== ENCOUNTER → 2018-01-10 | Outpatient (CLI) | payer OTHER ==
[~2018-01-10] MED LIST changes: +AMOX500C3 PO; +ATOR-24 PO; -BRL90 PO; +CYAN100020 PO; +ESCI1TAB10 PO; -GLUC1CAP35 PO; -LPR25 PO; -LPT40 PO; +METO25TA3 PO; -MIRA1TAB3 PO; -MODA1TAB PO; -MULT-845 PO; +MULTCHW PO; -OMEG1CAP81 PO; -PARO1TAB29 PO; +RANI300T2 PO; -RANITIDINE PO; -ROPI0.5T15 PO; +TAMS0.4C38 PO; +TICA1TAB PO; -VITAMIN B12 PO
== END | disposition home or self-care (01) ==
LOC: C.LABPVFM 18:10
PROVIDERS: ATTEND Family Medicine
DX: L03.90 Cellulitis, unspecified (principal)

== ENCOUNTER → 2018-04-01 | Outpatient (CLI) | payer OTHER ==
[2018-04-01 14:12] LABS: ALBUMIN 3.5 gm/dl (3.4-5.0); ALKALINE PHOSPHATASE 101 U/L (45-117); ALT/SGPT 36 U/L (12-78); AST/SGOT 23 U/L (15-37); BLOOD UREA NITROGEN 16 mg/dl (7-18); CALCIUM 8.7 mg/dl (8.5-10.1); CARBON DIOXIDE 32 mmol/L (21-32); CHOLESTEROL 167 mg/dl (0-200); CREATININE 1.01 mg/dl (0.60-1.40); GLUCOSE 103 mg/dl (70-99); LDL CHOLESTEROL CALCULATED 77 mg/dl; POTASSIUM 4.3 mmol/L (3.5-5.1); SODIUM 140 mmol/L (136-145); TOTAL PROTEIN 7.2 gm/dl (6.4-8.2)
== END | disposition home or self-care (01) ==
LOC: C.LABPVFM 08:57
PROVIDERS: ATTEND Family Medicine
DX: F32.9 Major depressive disorder, single episode, unspecified (principal); I10 Essential (primary) hypertension; K21.9 Gastro-esophageal reflux disease without esophagitis; E78.5 Hyperlipidemia, unspecified; E03.9 Hypothyroidism, unspecified; E11.9 Type 2 diabetes mellitus without complications; I25.10 Atherosclerotic heart disease of native coronary artery without angina pectoris